=== PATIENT | male | born 1995 | race Caucasian/White ===

== ENCOUNTER 2023-12-04 07:02 | Inpatient (IN) | payer MEDICAID ==
[2023-12-04] VITALS (14 sets, daily range): BP systolic 144–196; BP diastolic 88–121; PULSE 84–109; RESP 18–21; TEMP 97.6–99; O2SAT 98
[~2023-12-04] VITALS: Ht 157.5 cm; Wt 53.1 kg
[2023-12-04 08:07] LABS: BASOPHILS % 0.3 % (0.0-2.0); EOSINOPHILS % 1.7 % (0.0-5.0); HEMATOCRIT. 33.4 % (42.0-52.0); HEMOGLOBIN. 11.2 g/dL (14.0-18.0); LYMPHOCYTES % 9.3 % (20.0-50.0); MEAN CORPUSCULAR HEMOGLOBIN 30.3 pg (28.0-32.0); MEAN CORPUSCULAR HGB CONC 33.7 g/dL (31.0-37.0); MEAN PLATELET VOLUME 8.7 fl (7.4-10.4); MONOCYTES % 3.9 % (2.0-8.0); NEUTROPHILS % 84.8 % (40.0-76.0); PLATELET 153 x1000/uL (130-400); RED BLOOD CELL COUNT 3.71 mill/uL (4.7-6.1); RED CELL DISTRIBUTION WIDTH 14.5 % (11.6-14.6); WHITE BLOOD COUNT 9.7 x1000/uL (4.5-11.0)
[2023-12-04] MEDS: PANTOPRAZOLE SODIUM 40 MG/VIAL IV STA (08:16)
[2023-12-04] MEDS: METOCLOPRAMIDE HCL 10MG/2ML VIAL IV STA (08:16)
[2023-12-04 08:20] LABS: INR 1.1
[2023-12-04 08:26] LABS: CARBON DIOXIDE 27 mEq/L (21-32); CHLORIDE 100 mEq/L (98-107); SODIUM 137 mEq/L (136-145)
[2023-12-04 08:27] LABS: CALCIUM 8.8 mg/dL (8.7-10.4)
[2023-12-04 08:32] LABS: ETHANOL BLOOD < 10 mg/dL (<10); GLUCOSE 84 mg/dL (70-105); UREA NITROGEN BLOOD 50 mg/dL (9-23)
[2023-12-04 08:40] LABS: CREATININE 9.9 mg/dL (0.6-1.3); POTASSIUM 6.2 mEq/L (3.5-5.1); TROPONIN I HIGH SENSITIVITY 66 ng/L (3.0-53)
[2023-12-04] MEDS ORDERED: AZITHROMYCIN 500MG/250ML 250 ML IV SCH (10:00)
[2023-12-04] MEDS: SODIUM BICARBONATE 8.4% 1 MEQ/ML 50ML SYR IV NR (10:01)
[2023-12-04] MEDS: CEFTRIAXONE 1GM/50ML 50 ML IV NR (10:01)
[2023-12-04] MEDS: AZITHROMYCIN 500MG/250ML 250 ML IV NR (10:02)
[2023-12-04] MEDS: DEXTROSE 50% WATER 50ML SYRINGE IV NR (10:02)
[2023-12-04] MEDS: ALBUTEROL (0.083%) 2.5MG/3ML NEB HHN NR (10:12)
[2023-12-04] MEDS: INSULIN REGULAR (HUMULIN R) 300UNITS/3ML VIAL IV NR (10:27)
[2023-12-04 10:53] LABS: TROPONIN I HIGH SENSITIVITY 86 ng/L (3.0-53)
[2023-12-04] MEDS ORDERED: DIPHENHYDRAMINE 50MG/ML VIAL IV PRN (12:15)
[2023-12-04] MEDS ORDERED: ONDANSETRON HCL 4MG/2ML INJ IV PRN (12:15)
[2023-12-04] MEDS ORDERED: IPRATROPIUM/ALBUTEROL 0.5-3(2.5)MG/3ML NEB HHN PRN (12:15)
[2023-12-04] MEDS: SODIUM CHLORIDE 0.9% 1,000 ML IV SCH (12:28)
[2023-12-04] MEDS: SODIUM POLYSTYRENE SULFONATE 15 G/60 ML BOT PO NR (15:01)
[2023-12-04 15:08] LABS: HEPATITIS B SURFACE ANTIGEN NEGATIVE (Negative)
[2023-12-04 15:29] LABS: HEPATITIS A AB IGM NEGATIVE (Negative); HEPATITIS B CORE AB IGM NEGATIVE (Negative)
[2023-12-04 15:30] LABS: HEPATITIS C AB NON REACTIVE (Neg) (Negative)
[2023-12-04] MEDS: CLONIDINE 0.1MG TABLET PO PRN (18:13)
[2023-12-04] MEDS: IPRATROPIUM/ALBUTEROL 0.5-3(2.5)MG/3ML NEB HHN SCH (20:36)
[2023-12-05] VITALS (18 sets, daily range): BP systolic 141–167; BP diastolic 94–113; PULSE 73–92; RESP 16–20; TEMP 97.8–99.7; O2SAT 98
[2023-12-05] MEDS: ACETAMINOPHEN 325MG TABLET PO PRN (04:28)
[2023-12-05 07:32] LABS: BASOPHILS % 0.4 % (0.0-2.0); CHLORIDE 97 mEq/L (98-107); EOSINOPHILS % 2.8 % (0.0-5.0); HEMATOCRIT. 32.4 % (42.0-52.0); LYMPHOCYTES % 13.9 % (20.0-50.0); MEAN CORPUSCULAR HEMOGLOBIN 30.3 pg (28.0-32.0); MEAN CORPUSCULAR HGB CONC 34.1 g/dL (31.0-37.0); MEAN CORPUSCULAR VOLUME 88.8 fL (80.0-94.0); MEAN PLATELET VOLUME 9.4 fl (7.4-10.4); MONOCYTES % 7.7 % (2.0-8.0); NEUTROPHILS % 75.2 % (40.0-76.0); PLATELET 154 x1000/uL (130-400); POTASSIUM 5.9 mEq/L (3.5-5.1); RED BLOOD CELL COUNT 3.65 mill/uL (4.7-6.1); RED CELL DISTRIBUTION WIDTH 14.5 % (11.6-14.6); SODIUM 136 mEq/L (136-145); WHITE BLOOD COUNT 7.4 x1000/uL (4.5-11.0)
[2023-12-05 07:34] LABS: CALCIUM 9.2 mg/dL (8.7-10.4); CARBON DIOXIDE 29 mEq/L (21-32)
[2023-12-05 07:39] LABS: GLUCOSE 81 mg/dL (70-105); UREA NITROGEN BLOOD 44 mg/dL (9-23)
[2023-12-05 07:41] LABS: ALANINE AMINOTRANSFERASE 29 IU/L (10-49); ALBUMIN 4.2 g/dL (3.2-4.8); ASPARTATE AMINOTRANSFERASE 23 IU/L (<34); BILIRUBIN DIRECT 0.4 mg/dL (<=3.0); BILIRUBIN TOTAL 1.1 mg/dL (0.1-1.0); PHOSPHORUS 7.7 mg/dL (2.5-4.9)
[2023-12-05 07:42] LABS: CREATININE 9.1 mg/dL (0.6-1.3); PROTEIN TOTAL 7.1 g/dL (6.0-8.3)
[2023-12-05] MEDS ORDERED: CEFTRIAXONE 1GM/50ML 50 ML IV SCH (09:00)
[2023-12-05] MEDS: CEFTRIAXONE 1GM/50ML 50 ML IV SCH (10:58)
[2023-12-05] MEDS: SODIUM POLYSTYRENE SULFONATE 15 G/60 ML BOT PO SCH (12:07)
[2023-12-05] MEDS ORDERED: LEVO250T74 MT (13:10)
[2023-12-05] MEDS: DOXYCYCLINE 100MG/100ML 100 ML IV SCH (16:37)
[2023-12-06] MEDS ORDERED: AZITHROMYCIN 250 MG TABLET PO SCH (09:00)
== END 2023-12-05 18:30 | disposition home or self-care (01) | DRG 133 ==
LOC: ER 07:52 → 3WST 10:53 → EDBEDREQTM 10:56 → EDBEDREQ 10:56 → 3WST 18:38
PROVIDERS: ADMIT Family Medicine Adult Medicine; ATTEND Family Medicine Adult Medicine
PROC: 5A1D70Z Performance of Urinary Filtration, Intermittent, Less than 6 Hours Per Day (ICD-10-PCS; principal; 2023-12-04)
PROC: 5A1D70Z Performance of Urinary Filtration, Intermittent, Less than 6 Hours Per Day (ICD-10-PCS; 2023-12-05)
DX: J96.01 Acute respiratory failure with hypoxia (principal); I13.11 Hypertensive heart and chronic kidney disease without heart failure, with stage 5 chronic kidney disease, or end stage renal disease; J18.9 Pneumonia, unspecified organism; N18.6 End stage renal disease; K92.0 Hematemesis; N17.9 Acute kidney failure, unspecified; E87.5 Hyperkalemia; R04.2 Hemoptysis; R16.0 Hepatomegaly, not elsewhere classified; N25.81 Secondary hyperparathyroidism of renal origin; Z20.822 Contact with and (suspected) exposure to COVID-19; N20.0 Calculus of kidney; D64.9 Anemia, unspecified; K76.9 Liver disease, unspecified; Z99.2 Dependence on renal dialysis; E78.5 Hyperlipidemia, unspecified; Z82.49 Family history of ischemic heart disease and other diseases of the circulatory system
CPT/HCPCS: 36415; 71045; 74176; 76700; 80048; 80076; 80320; 83605; 83735; 84100; 84145; 84484; 85025; 86705; 86709; 86850; 86900; 87340; 87426; 87804; 90935; 93005; 93970; 94640; 99291; C9113; J0456; J0696; J2765; J3490; G0480